=== PATIENT | female | born 1965 | race African-American/Black ===

== ENCOUNTER 2017-03-29 08:32 | Emergency (ER) | payer BC ==
[2017-03-29 08:40] VITALS: BP 120/79; PULSE 91; TEMP 98.7; BMI 38.7
--- NOTE | 2017-03-29 09:08 | PDOC ---
Attending Attestation - Resident Resident Name: Janeth Miramontes - HPI HPI: 03/29/17 10:33 51 y/o female presents to ed c/o 2 days of positional vertigo, pt feels room is spinning when she lasy flat, no dizziness with walking, no gait abnormalities. PT c/o slight frontal sinus pressures and feels like she may have a slight sinus infection - Physicial Exam PE: 03/29/17 10:34 Exam: V/s T-98.7 ,hr-91,rr 20 B/p 120/79 HEENT: NC/AT,DARYA, EOMI, No nystagmus,Tm's nl Neck: supple Lungs: = bs todd cta Heart: S1s2 nl abd: + bs abd soft no guarding or tenderness Ext: no edema Neuro: alert and oriented x3, nl motor and sensory, nl gait, neg phomberg, pt able to walk on heels 03/29/17 10:39 - Medical Decision Making 03/29/17 10:40 51 y/o female here in Ed with complaints suggestive of benign positional vertigo , pt has nl neuro exam, at present, will hydrate, gie meclizine check basic labs and reevaluate for probable dc home with out pt f/u with pcp
[2017-03-29] MEDS ORDERED: MECLIZINE HCL 25 MG TABLET (FP) PO ONE (09:52)
[2017-03-29] MEDS ORDERED: SODIUM CHLORIDE 0.9% 1000 ML INFUS.BAG IV ONE (09:53)
[2017-03-29] MEDS ORDERED: MECLIZINE HCL 25 MG TABLET (FP) ONE (10:00)
--- NOTE | 2017-03-29 10:01 | PDOC ---
History of Present Illness - General Chief Complaint: Lightheaded Stated Complaint: DIZZINESS Time Seen by Provider: 03/29/17 08:46 History Source: Patient Exam Limitations: No Limitations - History of Present Illness Initial Comments: This is a 51 YOF with h/o recurrent sinus infections (1-2 per year in Winter months), HTN, and HLD who presents with 2 days of episodic room-spinning dizziness lasting several seconds at a time and brought on by laying down and head position changes. This kept her from sleeping well last night, and she needed to sit up all night as laying down flat brought on her symptoms. She additionally notes sinus pressure (points to left frontal sinus) and drainage today, as well as frontal headache near the bridge of her nose yesterday, and mild nausea. She denies any recent fever, chills, cough, sore throat, ear pain, hearing loss, SOB, chest pain, abdominal pain, nausea, vomiting, diarrhea, black or bloody stool, dysuria, hematuria, numbness, tingling, focal weakness, vision changes, difficulty balancing, or other symptoms. She has only had vertigo once before in her life about two weeks ago just after standing. She has not taken any medications for her recent symptoms. Past History - Past Medical History Allergies/Adverse Reactions: Allergies Allergy/AdvReac Type Severity Reaction Status Date / Time amoxicillin Allergy Hives Verified 03/29/17 08:39 Home Medications: Ambulatory Orders Atorvastatin Ca [Lipitor] 20 mg PO HS 10/08/15 Olmesartan Medoxomil [Benicar (Nf)] 20 mg PO DAILY 10/08/15 Pseudoephedrine HCl [Pseudoephedrine ER] 120 mg PO BID #10 tablet.er 03/29/17 COPD: No HTN: Yes Hypercholesterolemia: Yes - Suicide/Smoking/Psychosocial Hx Smoking History: Never smoked Have you smoked in the past 12 months: No Hx Alcohol Use: No Drug/Substance Use Hx: No Substance Use Type: None Review of Systems - Review of Systems Constitutional: No: Chills, Fever, Unexplained wgt Loss HEENTM: Yes: Other (sinus pressure). No: Blurred Vision, Recent change in vision, Double Vision, Ear Pain, Ear Discharge, Nose Congestion, Hearing Loss, Throat Pain Respiratory: No: Cough, Shortness of Breath Cardiac (ROS): No: Chest Pain, Palpitations ABD/GI: Yes: Nausea. No: Constipated, Diarrhea, Vomiting : No: Burning, Dysuria Musculoskeletal: No: Back Pain, Neck Pain Integumentary: No: Bruising, Rash Neurological: Yes: Headache (resolved), Dizziness (room spinning). No: Numbness , Tingling, Weakness Endocrine: No: Unexplained Weight Gain, Unexplained Weight Loss *Physical Exam - Vital Signs Last Vital Signs Temp Pulse Resp BP Pulse Ox 98.7 F 91 H 20 120/79 100 03/29/17 08:36 03/29/17 08:36 03/29/17 08:36 03/29/17 08:36 03/29/17 08:36 - Physical Exam General Appearance: Yes: Nourished, Appropriately Dressed, Obese, Other (very pleasant adult female, conversive, smiling, and answering appropriately, initially no distress and only becomes distressed after Denver-Hallpike maneuver). No: Apparent Distress HEENT: positive: EOMI, Normal Voice, Hearing Grossly Normal. negative: Scleral Icterus (R), Scleral Icterus (L), Nasal Congestion Neck: positive: Trachea midline, Supple. negative: Tender, Rigid Respiratory/Chest: positive: Lungs Clear, Normal Breath Sounds, Other (large- busted habitus). negative: Respiratory Distress, Crackles, Rhonchi, Stridor, Wheezing Cardiovascular: positive: Regular Rhythm, Regular Rate. negative: Murmur Gastrointestinal/Abdominal: positive: Normal Bowel Sounds, Soft. negative: Tender, Organomegaly, Pulsatile Mass, Guarding Musculoskeletal: positive: Normal Inspection. negative: Decreased Range of Motion, Vertebral Tenderness Extremity: positive: Normal Capillary Refill, Normal Inspection, Normal Range of Motion. negative: Tender, Cyanosis Integumentary: positive: Normal Color, Dry, Warm. 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 negative: Facial Droop, Numbness, Sensory Deficit, Confused, Disoriented ED Treatment Course - LABORATORY CBC & Chemistry Diagram: 03/29/17 10:07 03/29/17 10:07 Medical Decision Making - Medical Decision Making 51 YOF with frequent sinus infections p/w seconds-long episodic vertigo and sinus pressure x1-2 days. On exam she has normal neuro exam but Denver-Hallpike reproduces chief complaint exactly which lasts about 10 seconds. Cannot initially observe nystagmus provoked by Denver-Hallpike as patient has difficulty tolerating symptoms and closes eyes. Left frontal sinus pressure as well. DDX IBNLT BPPV, vestibular neuritis/labyrinthitis (e.g. associated with sinus infection), unlikely Meniere's dz or central vertigo. The patient's vertigo timing, duration, and provoking factors fit clinical picture of peripheral vertigo. She does not have sustained symptoms and this occurs with laying-flat position and turning head. She has no neck pain; headache fits clinical picture for sinus pain possibly with sinus infection. Ordered are CBCD, CMP, IVF, Meclizine for symptoms and will re-assess afterwards. 03/29/17 11:11 Labs have resulted non-directive toward specific etiology of vertigo. Patient has gotten slight improvement with meclizine and 1/2 liter IVF. Sebastian maneuver done (once left-right and again right-left facing) with some improvement. Will give patient a break and she is willing to try it again in 10 minutes. 03/29/17 11:47 Sebastian maneuver repeated and patient subsequently reports no symptoms with position change and laying down. She is given E-Rx for Sudafed sent to pharmacy. Return precautions are discussed and she is appropriate for DC home. She will follow up with PCP. *DC/Admit/Observation/Transfer Diagnosis at time of Disposition: Vertigo - Discharge Dispostion Disposition: HOME Condition at time of disposition: Stable Admit: No - Prescriptions Prescriptions: Pseudoephedrine HCl [Pseudoephedrine ER] 120 mg PO BID #10 tablet.er - Referrals Referrals: Josefina Rolon MD [Primary Care Provider] - - Patient Instructions Printed Discharge Instructions: Benign Paroxysmal Positional Vertigo Additional Instructions: You were seen in the ER for vertigo. We did laboratory tests which were normal. We also gave you meclizine here with a bit of relief, and we did the Sebsatian maneuver which seemed to help your symptoms as well. 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 While at the pharmacy, you can also picking belt operator some Meclizine (ask the pharmacist - it is the non-drowsy form of Dramamine). Please follow up with your regular doctor, or you can return to the ER for any new or worsening symptoms like vertigo episodes that do not resolve within 2 minutes, headache, vision changes, numbness, tingling, weakness of one part or side of your body, inability to walk or balance, or other symptoms. - Post Discharge Activity
[2017-03-29 10:29] LABS: BASOPHIL 0.4 % (0-2.0); EOSINOPHIL 0.7 % (0-4.5); MCHC 32.9 g/dl (32.0-36.0); MEAN CELL VOLUME 85.3 fl (80-96); MEAN PLT VOLUME 7.7 fl (7.5-11.1); NEUTROPHILS 74.7 % (42.8-82.8); PLATELET COUNT 286 K/MM3 (134-434); RDW 13.6 % (11.6-15.6); WHITE BLOOD COUNT 7.3 K/mm3 (4.0-10.0)
[2017-03-29 10:51] LABS: ALBUMIN 3.6 g/dl (3.4-5.0); ALK PHOS 109 U/L (45-117); ANION GAP 3 (8-16); BILIRUBIN,TOTAL 0.6 mg/dL (0.2-1.0); CALCIUM 8.8 mg/dL (8.5-10.1); CO2 32 mmol/L (21-32); GLUCOSE,RANDOM 92 mg/dL (74-106); SGOT/AST 11 U/L (15-37); SGPT/ALT 21 U/L (12-78); TOT PROT 7.8 g/dl (6.4-8.2)
== END 2017-03-29 12:11 | disposition home or self-care (01) ==
LOC: JER 08:32
DX: H81.10 Benign paroxysmal vertigo, unspecified ear (principal); J34.89 Other specified disorders of nose and nasal sinuses
CPT/HCPCS: 36415; 80053; 85025; 99283-25

== ENCOUNTER 2018-01-26 06:35 | Emergency (ER) | payer BC ==
[2018-01-26 07:23] VITALS: TEMP 98.3; BMI 37.9
[2018-01-26] MEDS ORDERED: KETOROLAC TROMETHAMINE 30 MG/1 ML VIAL IVPUSH ONE (09:01)
[2018-01-26] MEDS ORDERED: ACETAMINOPHEN 325 MG TABLET (FP) PO ONE (09:01)
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
[2018-01-26] MEDS ORDERED: KETOROLAC TROMETHAMINE 60 MG/2 ML VIAL ONE (09:11)
[2018-01-26] MEDS ORDERED: ACETAMINOPHEN 325 MG TABLET (FP) ONE (09:11)
[2018-01-26] MEDS ORDERED: KETOROLAC TROMETHAMINE 30 MG/1 ML VIAL IM ONE (09:13)
--- NOTE | 2018-01-26 09:48 | PDOC ---
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 no falls or injuries. no recent abx or quinolone use. no f/c, weakness or paresthesias. sx worse with movement and walking/bearing weight. - Physicial Exam PE: 01/26/18 10:20 right Lower Extremity: soft compartment. no calf tenderness. 5/5 plantar and dorsiflexion. SILT. no laxity at knee or ankle jt. 2+ DP pulses bilaterally. +right heel TTP without skin findings or changes. able to bear weight. - Medical Decision Making 01/26/18 09:47 52 YOF HTN and HLD presenting with right heel pain x 2 days. DDx. arthritis, calcaneal bony spurs. doubt fx. doubt infection w/o skin changes. doubt vascular pathology or DVT as no prox symptoms. NVI, soft compartments. most likely msk strain and arthritic/degenerative changes and increased stress to foot. vitals wnl, no fever well appearing given toradol and tylenol with relief XRay foot with bony spurs on calcaneus, normal alignment of bones and metatarsal. ABDIRAHMAN wrap, supportive hard sole shoe for comfort, supportive care, RICE and discharge with ortho/podiatry followup/PMD followup. OTC pain control, advised lessening NSAID, may use tylenol. no narcotics. return precautions given. 01/26/18 10:20
[2018-01-26 10:56] VITALS: BP 134/78; PULSE 78
== END 2018-01-26 10:45 | disposition home or self-care (01) ==
LOC: JER 06:35
PROC: 3E0233Z Introduction of Anti-inflammatory into Muscle, Percutaneous Approach (ICD-10-PCS; principal; 2018-01-26)
DX: M79.671 Pain in right foot (principal)
CPT/HCPCS: 73610-TC-RT-FY; 73630-TC-RT-FY; 99282-25

== ENCOUNTER 2023-01-02 19:34 | Emergency (ER) | payer BC, OTHER ==
[2023-01-02 19:47] VITALS: BP 134/77; PULSE 75; RESP 20; TEMP 98; BMI 39.4
[2023-01-02] MEDS ORDERED: IBUPROFEN 400 MG TABLET (FP) PO ONE ×2 (20:04→20:12)
== END 2023-01-02 21:17 | disposition home or self-care (01) ==
LOC: JER 19:34
DX: M25.561 Pain in right knee (principal)
CPT/HCPCS: 73560-TC-LT-FY; 73560-TC-RT-FY; 99283-25